=== PATIENT | female | born 1940 | race Caucasian/White ===

== ENCOUNTER → 2017-09-24 | Day surgery (SDC) | payer MEDICARE, OTHER ==
[~2017-09-24] MED LIST: ADAL40PE SQ; ALEN70TA3 PO; ASPI-630 PO; BALS750C PO; BUDE10.2 IH; CALC-157 PO; CARV25TA PO; CARV6.252 PO; CHONDR PO; CIPR500T94 PO; DOCU-109 PO; GLUCOSA PO; IV RINGERS SOLUTION,LACTATED 1,000 ML IV ONE; IV RINGERS SOLUTION,LACTATED 1,000 ML IV SCH; LIDOCAINE 2% PF Vial for OR 5 ML VIAL. ONE; LISI-334 PO; METR500T PO; METR500T8 PO; MULT1TAB52 PO; NIFE30TA2 PO; NITR100C62 PO; OMEP20TA63 PO; ONDA4TAB12 PO; ONDANSETRON PF 4 MG/2 ML VIAL. IV PRN; PANT40TA3 PO; POTA10TA31 PO; PRED20TA PO; PRED50TA PO; PROPOFOL 40 ML IV ONE; PSYL0.5215 PO; RANI150T2 PO; SIMV40TA3 PO; VANC125C2 PO
[2017-09-24 13:10] VITALS: BP 125/80
--- NOTE | 2017-09-30 17:08 | PATHOLOGY ---
[facility] Accession Number: [id number] . 01 Material submitted: . PART A: CECAL POLYP PART B: RIGHT COLON BIOPSY PART C: TRANSVERSE COLON BIOPSY PART D: LEFT COLON BIOPSY . 01 Clinical history: . Crohn's disease . 02 Diagnosis: A. Colon biopsy, cecal polyp: - Mild chronic inflammation with focal surface epithelial atrophy consistent with prominent fold. . B. Colon biopsies, right colon: - Mild chronic inflammation with focal surface epithelial inflammation and atrophy. . C. Colon biopsies, transverse colon: - Mild chronic inflammation with focal surface epithelial inflammation and atrophy. . D. Colon biopsies, left colon: - Mild chronic inflammation with focal surface epithelial inflammation and atrophy. (JPM:tashia; 09/29/2017) QMS/09/29/2017 . 02 Comment: Sections of the colon biopsies reveal multiple segments of colonic mucosa containing a few mucosa-associated lymphoid aggregates and showing mild chronic inflammation with focal surface epithelial inflammation and atrophy. There are no granulomas or crypt abscesses. There is no evidence of an active chronic destructive colitis. There is no dysplasia or evidence of malignancy. (JPM:tashia; 09/29/2017) . 02 Electronically signed: . Tommie Quiroga MD, Pathologist NPI- [id number] . 01 Gross description: . A. Received in formalin labeled "Khalida Babin, cecal polyp," is a single segment of saavedra soft tissue measuring 0.3 cm in maximum dimension. The specimen is submitted entirely in cassette A1. . B. Received in formalin labeled "TalyaWalterKhalida, right colon BX," are 3 segments of saavedra soft tissue measuring 0.9 x 0.5 x 0.2 cm in aggregate dimensions and ranging from 0.2 to 0.3 cm in maximum dimension. The specimen is submitted entirely in cassette B1. . C. Received in formalin labeled "Khalida Babin, transverse colon BX," are 3 segments of saavedra soft tissue measuring 0.6 x 0.5 x 0.2 cm in aggregate dimensions and ranging from 0.2 to 0.3 cm in maximum dimension. The specimen is submitted entirely in cassette C1. . D. Received in formalin labeled "Khalida Babin, left colon BX," are 3 segments of saavedra soft tissue measuring 0.7 x 0.5 x 0.3 cm in aggregate dimensions and ranging from 0.2 to 0.4 cm in maximum dimension. The specimen is submitted entirely in cassette D1. (TSD; 09/27/2017) TOB/TOB . 02 Pathologist provided ICD-10: K52.9, K63.89, K50.90 . 02 CPT . 565300, 357908, 002338, 159074 Performed at: 01 [facility] [address], [place] [id number] MD Herrera Mosher MD Phone: [phone] Performed at: 02 [facility] [address] [place], [place] [id number] MD Tommie Quiroga MD Phone: [phone]
== END ==
LOC: SURG 10:05
PROVIDERS: ATTEND Internal Medicine Gastroenterology
DX: K52.9 Noninfective gastroenteritis and colitis, unspecified (principal); K50.80 Crohn's disease of both small and large intestine without complications; E78.00 Pure hypercholesterolemia, unspecified; Z90.49 Acquired absence of other specified parts of digestive tract; Z90.710 Acquired absence of both cervix and uterus; Z98.890 Other specified postprocedural states; Z87.39 Personal history of other diseases of the musculoskeletal system and connective tissue; Z79.82 Long term (current) use of aspirin; Z79.899 Other long term (current) drug therapy; Z98.0 Intestinal bypass and anastomosis status
CPT/HCPCS: 45380; J2704; J7120; 88305; J2001

== ENCOUNTER → 2017-12-21 | Outpatient (CLI) | payer MEDICARE, OTHER ==
[2017-09-24 13:10] VITALS: BP 125/80
[~2017-12-21] MED LIST changes: -IV RINGERS SOLUTION,LACTATED 1,000 ML IV ONE; -IV RINGERS SOLUTION,LACTATED 1,000 ML IV SCH; -LIDOCAINE 2% PF Vial for OR 5 ML VIAL. ONE; -ONDANSETRON PF 4 MG/2 ML VIAL. IV PRN; -PROPOFOL 40 ML IV ONE
--- NOTE | 2017-12-21 15:12 | RAD ---
Bone densitometry 12/21/2017 12:04 PM Indication: Screening exam, ov failure Comparison Study: None available. Discussion: Bone Densitometry was performed with dual photon absorption of the lumbar spine and proximal femurs. Lumbar Spine: Bone average density is 1.237g/cm2 for L1-L4. T-Score is 0.5. Degenerative and scoliotic changes of the lumbar spine appear to be present. Resultant sclerosis could alter bone mineral density measurement. Right femoral neck: Bone average density is 0.706g/cm2. T-Score is -2.4. IMPRESSION: Osteopenia. Note bone mineral density is just above the osteoporotic range. Fracture risk is considered high Note: Definitions established by the World Health Organization: Normal: T-score is -1.0 or above. Osteopenia: T-score is between -1.0 and -2.5. Osteoporosis: T-score is -2.5 or below. Electronically signed by: Hi Borges MD (12/21/2017 3:08 PM) [id number]
== END | disposition home or self-care (01) ==
LOC: DXRAD 11:40
PROVIDERS: ATTEND Nurse Practitioner Family
DX: M85.88 Other specified disorders of bone density and structure, other site (principal); I10 Essential (primary) hypertension; Z87.891 Personal history of nicotine dependence; Z90.710 Acquired absence of both cervix and uterus
CPT/HCPCS: 77080

== ENCOUNTER → 2018-10-21 | Day surgery (SDC) | payer MEDICARE, OTHER ==
[~2018-10-21] MED LIST changes: +ACETAMINOPHEN 325 MG TABLET PO PRN; +ALBUTEROL SULFATE 2.5 MG/3 ML NEBU. NEB PRN; -CARV6.252 PO; +CARV6.2541 PO; +DENO60DI SQ; +IV RINGERS SOLUTION,LACTATED 1,000 ML IV SCH; +METR-34 PO; -METR500T8 PO; +ONDANSETRON PF 4 MG/2 ML VIAL. IV PRN; +PROPOFOL 20 ML IV ONE; -VANC125C2 PO; +VANC125C3 PO; +diphenhydrAMINE 50 MG/ML VIAL IV PRN
[2018-10-21 12:24] VITALS: BP 112/61
--- NOTE | 2018-10-25 16:06 | PATHOLOGY ---
[facility] Accession Number: [id number] . 01 Material submitted: . PART A: colon - RIGHT COLON. Modifiers: right PART B: colon - TRANSVERSE COLON. Modifiers: transverse PART C: colon - TRANSVERSE COLON POLYP. Modifiers: transverse PART D: colon - LEFT COLON. Modifiers: left . 01 Clinical history: . Crohn's . 02 Diagnosis: A. Colon biopsies, right colon: - Mild chronic colitis with increased eosinophils. . B. Colon biopsies, transverse colon: - Mild chronic colitis with increased eosinophils. . C. Colon biopsy, transverse colon polyp: - Hyperplastic mucosal-associated lymphoid aggregate. . D. Colon biopsies, left colon: - Mild chronic colitis with increased eosinophils. (SHEMARM:erick; 10/25/2018) MBR/10/25/2018 . 02 Comment: Sections of the right colon, transverse colon, and left colon biopsies appear similar and reveal segments of colonic mucosa showing mild chronic inflammation. There are increased eosinophils within the lamina propria and within the base of the mucosa. There is no evidence of active Crohn's disease. There is no mucosal ulceration, crypt architectural distortion, crypt abscesses, or granulomas. There is no dysplasia or evidence of malignancy. While increased eosinophils within mucosal biopsies may be seen with inflammatory bowel disease, they may also be seen in eosinophilic colitis, infectious colitis, and drug allergy. Correlate clinically. . Sections of the transverse colon polyp biopsy reveal a segment of colonic mucosa containing a hyperplastic mucosal-associated lymphoid aggregate. There are no adenomatous changes or evidence of malignancy. (JPDavid:erick; 10/25/2018) . 02 Electronically signed: . Tommie Quiroga MD, Pathologist NPI- [id number] . 01 Gross description: . A. Received in formalin labeled "Talay, Khalida, R colon BX," are 5 segments of saavedra soft tissue measuring 1.1 x 0.7 x 0.2 cm in aggregate dimensions and ranging from 0.1 to 0.5 cm in maximum dimension. The specimen is submitted entirely in cassette A1. . B. Received in formalin labeled "Khalida Babin, transverse BX," are 4 segments of saavedra soft tissue measuring 1.2 x 1.0 x 0.2 cm in aggregate dimensions and ranging from 0.1 to 0.4 cm in maximum dimension. The specimen is submitted entirely in cassette B1. . C. Received in formalin labeled "Khalida Babin, transverse polyp," is a single segment of saavedra soft tissue measuring 0.3 cm in maximum dimension. The specimen is entirely submitted in cassette C1. . D. Received in formalin labeled "Khalida Babin, left colon BX," are 5 segments of saavedra soft tissue measuring 1.0 x 0.9 x 0.2 cm in aggregate dimensions and ranging from 0.3 to 0.6 cm in maximum dimension. The specimen is submitted entirely in cassette D1. (TSD; 10/24/2018) TOB/TOB . 02 Pathologist provided ICD-10: K52.9 . 02 CPT . 451360, 351691, 671897, 585980 Specimen Comment: A courtesy copy of this report has been sent to Specimen Comment: [phone], . Specimen Comment: Report sent to / DR YOUNGER Performed at: 01 [facility] [address], [place], [place] [id number] MD Herrera Mosher MD Phone: [phone] Performed at: 02 [facility] [address] [place], [place] [id number] MD Tommie Quiroga MD Phone: [phone]
== END ==
LOC: SURG 10:35
PROVIDERS: ATTEND Internal Medicine Gastroenterology
DX: K63.5 Polyp of colon (principal); K52.89 Other specified noninfective gastroenteritis and colitis; K50.10 Crohn's disease of large intestine without complications; K21.9 Gastro-esophageal reflux disease without esophagitis; I10 Essential (primary) hypertension; Z98.0 Intestinal bypass and anastomosis status; Z88.8 Allergy status to other drugs, medicaments and biological substances
CPT/HCPCS: 45380; 88305

== ENCOUNTER 2018-12-17 21:49 | Inpatient (IN) | payer MEDICARE, OTHER ==
[~2018-12-17] VITALS: Ht 152.4 cm; Wt 66.0 kg
[~2018-12-17 21:49] MED LIST changes: -ACETAMINOPHEN 325 MG TABLET PO PRN; -ALBUTEROL SULFATE 2.5 MG/3 ML NEBU. NEB PRN; -IV RINGERS SOLUTION,LACTATED 1,000 ML IV SCH; -ONDANSETRON PF 4 MG/2 ML VIAL. IV PRN; -PROPOFOL 20 ML IV ONE; +SIMV40TA18 PO; -SIMV40TA3 PO; -diphenhydrAMINE 50 MG/ML VIAL IV PRN
[2018-12-17] MEDS ORDERED: IV NORMAL SALINE 1,000ML 1,000 ML IV ONE (22:15)
--- NOTE | 2018-12-17 22:26 | RAD ---
CT scan of the head without contrast 12/17/2018 Clinical History: Dizziness, fatigue. Technique: Unenhanced, contiguous, 5 mm axial sections were obtained through the head. One or more of the following individualized dose reduction techniques were utilized for this study: 1. Automated exposure control. 2. Adjustment of the mA and/or kV according to patient size. 3. Use of iterative reconstruction technique. Findings: No previous studies are available for comparison. There is generalized parenchymal atrophy. Areas of decreased attenuation are seen within the periventricular and subcortical white matter of both cerebral hemispheres consistent with areas of small vessel ischemic disease. No acute parenchymal abnormality is seen. No extra-axial fluid collection is noted. No skull fracture is seen. Impression: No acute intracranial abnormality is seen. Electronically signed by: Tor Vargas MD (12/17/2018 10:23 PM) [facility]
--- NOTE | 2018-12-17 22:50 | PHYS DOC ---
Past History Past Medical History: Arthritis, Bronchitis, Constipation, High Cholesterol, Hypertension, UTI, Vascular Disease, Other Additional Past Medical Histor: CROHNS Past Surgical History: Cholecystectomy, Colectomy, Hysterectomy, Other Alcohol Use: None Drug Use: None Adult General Chief Complaint Chief Complaint: DIZZY/LIGHT HEADED HPI HPI 78-year-old female presents via EMS with dizziness and fever. The patient states that she has a chronic cough, but it got worse a couple days ago. She has been feeling more tired and worse overall the last 2 days. Today she had some dizziness especially with standing up. She was unaware that she has fever. The patient does not have any specific complaints other than dizziness and general fatigue. She has difficulty with urinary incontinence. Review of Systems Review of Systems Constitutional: Fever [] Eyes: Denies change in visual acuity, redness, or eye pain [] HENT: Denies nasal congestion or sore throat [] Respiratory: Cough with shortness of breath [] Cardiovascular: No additional information not addressed in HPI [] GI: Denies abdominal pain, nausea, vomiting, bloody stools or diarrhea [] : Urinary incontinence[] Musculoskeletal: Denies back pain or joint pain [] Integument: Denies rash or skin lesions [] Neurologic: Denies headache, focal weakness or sensory changes [] Endocrine: Denies polyuria or polydipsia [] All other systems were reviewed and found to be within normal limits, except as documented in this note. Current Medications Current Medications Current Medications Medications (Trade) Dose Ordered Sig/Rachel Start Time Stop Time Status Last Admin Dose Admin Levofloxacin/ Dextrose 150 ml @ 100 mls/hr 1X ONCE 12/17/18 22:45 12/18/18 00:14 UNV Sodium Chloride 1,000 ml @ 1,000 mls/hr 1X ONCE 12/17/18 22:15 12/17/18 23:14 12/17/18 22:15 1,000 MLS/HR Allergies Allergies Allergies Coded Allergies Type Severity Reaction Last Updated Verified Penicillins Allergy Intermediate 01/20/16 Yes iodine Allergy Intermediate 01/20/16 Yes mushroom Allergy Mild 01/20/16 Yes Sulfa (Sulfonamide Antibiotics) Allergy Unknown 10/12/18 Yes Physical Exam Physical Exam Constitutional: Well developed, well nourished, no acute distress, non-toxic appearance. [] HENT: Normocephalic, atraumatic, bilateral external ears normal, oropharynx moist, no oral exudates, nose normal. [] Eyes: PERRLA, EOMI, conjunctiva normal, no discharge. [] Neck: Normal range of motion, no tenderness, supple, no stridor. [] Cardiovascular:Heart rate regular rhythm, no murmur [] Lungs & Thorax: Bilateral breath sounds diminished[] Abdomen: Bowel sounds normal, soft, no tenderness, no masses, no pulsatile masses. [] Skin: Warm, dry, no erythema, no rash. [] Back: No tenderness, no CVA tenderness. [] Extremities: No tenderness, no cyanosis, no clubbing, ROM intact, no edema. [] Neurologic: Alert and oriented X 3, normal motor function, normal sensory function, no focal deficits noted. [] Psychologic: Affect normal, judgement normal, mood normal. [] Current Patient Data Vital Signs Vital Signs Date Time Temp Pulse Resp B/P (MAP) Pulse Ox O2 Delivery O2 Flow Rate FiO2 12/17/18 22:00 100.1 63 18 94 Room Air EKG EKG [] Radiology/Procedures Radiology/Procedures [] Impressions: CT scan of the head without contrast 12/17/2018 Clinical History: Dizziness, fatigue. Technique: Unenhanced, contiguous, 5 mm axial sections were obtained through the head. One or more of the following individualized dose reduction techniques were utilized for this study: 1. Automated exposure control. 2. Adjustment of the mA and/or kV according to patient size. 3. Use of iterative reconstruction technique. Findings: No previous studies are available for comparison. There is generalized parenchymal atrophy. Areas of decreased attenuation are seen within the periventricular and subcortical white matter of both cerebral hemispheres consistent with areas of small vessel ischemic disease. No acute parenchymal abnormality is seen. No extra-axial fluid collection is noted. No skull fracture is seen. Impression: No acute intracranial abnormality is seen. Electronically signed by: Tor Vargas MD (12/17/2018 10:23 PM) [facility] DICTATED AND SIGNED BY: TOR VARGAS MD DATE: 12/17/18 2223 CC: CECI VARNER MD; JUAN SULLIVAN DO ~ Course & Med Decision Making Course & Med Decision Making Pertinent Labs and Imaging studies reviewed. (See chart for details) On arrival patient has a fever. She also has a low blood pressure. This is likely causing her does not. Though we do not currently have a source, the patient meets sepsis criteria. I ordered 30 mL/kg of fluids, blood cultures, lactic acid, and levofloxacin. The patient is allergic to penicillins. Her reaction includes shortness of breath and difficulty breathing. Labs are pending, chest x-ray is pending. The patient's labs show a low potassium and low sodium. See labs for more details. Her lactic acid is 1.0. The patient's urinalysis is significant for UTI. She has been given levofloxacin. Her white count is within normal limits. I will admit the patient to the hospital in the ICU. I discussed this patient with Dr. Miller and he has accepted her for admission. The patient was in the ED, she continued to have low blood pressures. She took her carvedilol at 7 PM. Her map was anywhere from 61-70. She tended to hang out in the low to mid 60s. I considered a presser, but she is easily arousable, alert, aware and tolerating this blood pressure at this time. I am concerned the risks of the pressor might be greater than the benefit given she appears stable. Her temperature is normal at this time. I have added meropenem as a s econd antibiotic in the event she could have a UTI resistant to levofloxacin. 49 minutes of critical care time was spent on this patient exclusive of other billable procedures. [] Dragon Disclaimer Dragon Disclaimer This electronic medical record was generated, in whole or in part, using a voice recognition dictation system. Date and Time of Assessment Date: Dec 17, 2018 Time: 22:48 Vital Signs Vital Signs Vital Signs Date Time Temp Pulse Resp B/P (MAP) Pulse Ox O2 Delivery O2 Flow Rate FiO2 12/17/18 22:00 100.1 63 18 94 Room Air Temperature Source: Oral Respirations Respiratory Effort: Normal Respiratory Pattern: Normal Cardiovascular Pulse Rhythm: Regular HEART: Nml rate, reg. rhythm Lung Sounds Breath Sounds: Diminished Capillary Refill Capillary Refill: Rt Foot < 3 seconds Peripheral Pulse Pulse Location: Monitor Pulse Strength: Normal (2+) Pulse Assessment Method: Monitor Integumentary Skin: Warm Skin Moisture: Dry Skin Turgor: Normal Skin Color: no erythema Fingernail Color: WNL Fluid Challenge: Is the fluid challenge complet: No IBW Target Volume Used: No BMI > 30: No Blood Culture TIme: 22:20 Time Antibiotics Given: 22:54 Departure Departure: Impression: Primary Impression: Sepsis Additional Impression: UTI (urinary tract infection) Disposition: ADMITTED INPATIENT Admitting Physician: Torres Miller Condition: GUARDED Referrals: CECI VARNER MD (PCP) Problem Qualifiers Primary Impression: Sepsis Sepsis type: sepsis due to unspecified organism Sepsis acute organ dysfunction status: without acute organ dysfunction Qualified Codes: A41.9 - Sepsis, unspecified organism Additional Impression: UTI (urinary tract infection) Urinary tract infection type: acute pyelonephritis Qualified Codes: N10 - Acute pyelonephritis JUAN SULLIVAN DO Dec 17, 2018 22:50
[2018-12-17 22:52] LABS: BASO % 1 % (0-3); EOS % 1 % (0-3); HEMATOCRIT 34.3 % (36.0-47.0); HEMOGLOBIN 11.9 g/dL (12.0-15.5); LYMPH # 0.6 x10^3/uL (1.0-4.8); LYMPH % 10 % (24-48); MEAN CORPUSCULAR HEMOGLOBIN 32 pg (25-35); MEAN CORPUSCULAR HGB CONC 35 g/dL (31-37); MEAN CORPUSCULAR VOLUME 92 fL (79-100); MONO # 0.8 x10^3/uL (0.0-1.1); MONO % 14 % (0-9); NEUT # 4.2 x10^3uL (1.8-7.7); NEUT % 75 % (31-73); PLATELET COUNT 155 x10^3/uL (140-400); RED BLOOD COUNT 3.73 x10^6/uL (3.50-5.40); WHITE BLOOD COUNT 5.6 x10^3/uL (4.0-11.0)
[2018-12-17] MEDS ORDERED: ACETAMINOPHEN 500 MG TABLET PO ONE (23:00)
[2018-12-17 23:01] LABS: ALBUMIN 3.4 g/dL (3.4-5.0); ALBUMIN/GLOBULIN RATIO 1.1 (1.0-1.7); CALCIUM 8.1 mg/dL (8.5-10.1); CREATININE 1.3 mg/dL (0.6-1.0); GFR 39.5; POTASSIUM 3.2 mmol/L (3.5-5.1); TOTAL BILIRUBIN 0.7 mg/dL (0.2-1.0); TOTAL PROTEIN 6.6 g/dL (6.4-8.2)
[2018-12-17] MEDS: NORMAL SALINE IV SCH (23:26)
[2018-12-17 23:39] LABS: BILIRUBIN,URINE NEG (NEG); CLARITY,URINE CLOUDY; COLOR,URINE YELLOW; GLUCOSE,URINE NEG (NEG); NITRITE,URINE POS (NEG); UROBILINOGEN,URINE 0.2 mg/dL (0.2 mg/dL)
[2018-12-17 23:40] LABS: BACTERIA,URINE MANY /HPF (0-FEW); HYALINE CASTS, URINE FEW /HPF; SQUAMOUS EPITHELIAL CELL,UR FEW /LPF; WBC,URINE >40 /HPF (0-4)
[2018-12-18] VITALS (40 sets, daily range): BP systolic 77–164; BP diastolic 42–76
[2018-12-18] MEDS: NORMAL SALINE IV SCH (00:33)
[2018-12-18] MEDS ORDERED: MEROPENEM 1 GM in IV NORMAL SALINE 100ML 100 ML IV STA (00:50)
[2018-12-18] MEDS ORDERED: IV NORMAL SALINE 100ML 100 ML ONE (00:53)
[2018-12-18] MEDS ORDERED: MEROPENEM 1 GM VIAL IV ONE (00:53)
[2018-12-18] MEDS ORDERED: ONDANSETRON PF 4 MG/2 ML VIAL. IV PRN (01:00)
[2018-12-18] MEDS: IV NORMAL SALINE 1,000ML 1,000 ML IV SCH ×4 (01:45→19:48)
--- NOTE | 2018-12-18 02:10 | NUR ---
The patient, RONNI CHUN, 78 y/o, F admitted by ARVIN QUINONEZ MD, was given written information regarding hospital policies, unit procedures and contact persons. Valuables were checked and logged. Call light at bedside. Will continue to monitor.
--- NOTE | 2018-12-18 02:29 | NUR ---
Notified MD of low blood pressure at this time. No medication orders received. Pt is currently in Trendelenburg. Pt is A&O x 4.
[2018-12-18] MEDS ORDERED: NOREPINEPHRINE BITARTRATE 4 MG/4 ML VIAL. IV ONE (02:40)
[2018-12-18] MEDS ORDERED: NOREPINEPHRINE BITARTRATE 8 MG in IV NORMAL SALINE 250ML 250 ML IV PRN (02:45)
[2018-12-18] MEDS ORDERED: Influenza vaccine per PROTOCOL. MC PRN (05:30)
[2018-12-18 06:43] LABS: BASO % 0 % (0-3); EOS % 0 % (0-3); HEMATOCRIT 30.3 % (36.0-47.0); HEMOGLOBIN 10.6 g/dL (12.0-15.5); LYMPH # 0.6 x10^3/uL (1.0-4.8); LYMPH % 13 % (24-48); MEAN CORPUSCULAR HEMOGLOBIN 32 pg (25-35); MEAN CORPUSCULAR HGB CONC 35 g/dL (31-37); MEAN CORPUSCULAR VOLUME 91 fL (79-100); MONO # 0.8 x10^3/uL (0.0-1.1); MONO % 16 % (0-9); NEUT # 3.4 x10^3uL (1.8-7.7); NEUT % 71 % (31-73); PLATELET COUNT 149 x10^3/uL (140-400); RED BLOOD COUNT 3.31 x10^6/uL (3.50-5.40); RED CELL DISTRIBUTION WIDTH 13.7 % (11.5-14.5); WHITE BLOOD COUNT 4.9 x10^3/uL (4.0-11.0)
[2018-12-18 06:55] LABS: ALBUMIN 2.6 g/dL (3.4-5.0); ALBUMIN/GLOBULIN RATIO 0.9 (1.0-1.7); CALCIUM 6.8 mg/dL (8.5-10.1); GFR 53.5; POTASSIUM 3.1 mmol/L (3.5-5.1); TOTAL BILIRUBIN 0.6 mg/dL (0.2-1.0); TOTAL PROTEIN 5.4 g/dL (6.4-8.2)
[2018-12-18] MEDS ORDERED: POTASSIUM CHLORIDE 20 MEQ TABLET.ER. PO ONE (07:15)
--- NOTE | 2018-12-18 07:29 | RAD ---
Indication:Fever, cough, fatigue TECHNIQUE:Portable AP chest X-ray COMPARISON: None FINDINGS: Heart is normal in size. Mild prominent interstitial opacities are seen. No focal consolidation. No pneumothorax or pleural effusion. Visualized bony thorax within normal limits. IMPRESSION: Suggestion of mild atypical/viral infection. Electronically signed by: Sunday Duncan DO (12/18/2018 7:26 AM) [facility]
[2018-12-18] MEDS ORDERED: FLU VAX QS 2019-20 (36MOS+)/PF 0.5 ML SYRINGE. VAX IM ONE (09:00)
[2018-12-18] MEDS ORDERED: ELECTROLYTE (NON-ICU) PROTOCOL MC PRN (10:30)
[2018-12-18] MEDS ORDERED: IPRATRPIUM/ALBUTEROL 0.5/2.5MG 3 ML NEBU. NEB SCH (14:00)
--- NOTE | 2018-12-18 14:27 | RAD ---
PQRS Compliance statement: One or more of the following individualized dose reduction techniques were utilized for this examination: 1. Automated exposure control. 2. Adjustment of the mA and/or kV according to patient size. 3. Use of iterative reconstruction technique. Indication:Chronic cough. TECHNIQUE: CT chest without IV contrast with multiplanar reformats. COMPARISON:None FINDINGS: Heart is normal in size. No pericardial effusion. No enlarged axillary or mediastinal lymph nodes. Evaluation of hilar lymphadenopathy is limited due to lack of IV contrast. Mild subpleural patchy opacity in the posterior segment of the right upper lobe. Trace bilateral pleural effusions. Consolidation is seen in the subpleural bilateral dependent aspect of the lung bases. Visualized noncontrast sections through the liver, spleen, pancreas, adrenals and kidneys within normal limits. No suspicious bony lesion. IMPRESSION: 1. Trace bilateral pleural effusions with associated adjacent mild consolidation which may be from passive atelectasis. 2. Mild patchy opacity in the subpleural right upper lobe, nonspecific. Follow-up CT chest in 3-4 months recommended. No evidence of interstitial lung disease. Electronically signed by: Sunday Duncan DO (12/18/2018 2:24 PM) [facility]
[2018-12-18] MEDS: guaiFENesin DM 200MG/20MG 10 ML SYRUP PO PRN ×2 (14:44→22:05)
[2018-12-18] MEDS: BALSALAZIDE DISODIUM PO SCH ×2 (14:56→20:51)
[2018-12-18] MEDS: ACETAMINOPHEN 325 MG TABLET PO PRN ×2 (16:03→19:56)
[2018-12-18] MEDS: IPRATRPIUM/ALBUTEROL 0.5/2.5MG 3 ML NEBU. NEB SCH ×2 (16:38→20:28)
[2018-12-18 16:45] LABS: CALCIUM 7.1 mg/dL (8.5-10.1); CREATININE 0.9 mg/dL (0.6-1.0); GFR 60.4; POTASSIUM 3.2 mmol/L (3.5-5.1)
[2018-12-18] MEDS: CALCIUM CARB/VIT D3 500/200 TABLET PO SCH (16:59)
[2018-12-18] MEDS: VANCOMYCIN 125 MG/2.5 ML ORAL SOLUTION. PO SCH ×2 (16:59→20:52)
[2018-12-18] MEDS: POTASSIUM CHLORIDE 10MEQ 100 ML IV SCH ×4 (17:00→19:56)
[2018-12-18] MEDS ORDERED: ELECTROLYTE (ICU) PROTOCOL. MC PRN (18:30)
[2018-12-18] MEDS ORDERED: guaiFENesin DM 200MG/20MG 10 ML SYRUP PO PRN (18:45)
--- NOTE | 2018-12-18 19:18 | HP ---
ADMIT DATE: 12/18/2018 HISTORY OF PRESENT ILLNESS: This is a 78-year-old female has been having chronic cough for the last several days, has been feeling feverish and lightheaded. The patient notes generalized fatigue. She has urinary incontinence. She is on immunosuppressive therapy for her Crohn's disease. As a result of this, the patient was admitted to the hospital for further evaluation and treatment of what appeared to be SIRS as the patient had an elevated temperature of 101.5. She was also noted to have extremely low blood pressure, was placed on IV Levophed drip. She was placed in the ICU. 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 Also, she has had a history of C. diff. IMMUNIZATIONS: For Influenza, pneumococcal all up-to-date. ALLERGIES: PENICILLIN, SULFUR, IODINE, AND MUSHROOMS. MEDICATIONS: Include that of Zocor 40, Coreg 25 b.i.d., lisinopril 20, aspirin 81, calcium carbonate, docusate sodium, Metamucil, ranitidine 150 mg b.i.d., balsalazide disodium 750 mg t.i.d., multivitamin, Prolia 60 mg q. 6, Humira 40 mg every 15 days. FAMILY HISTORY: Mother with hypertension and Crohn's disease as well as cardiovascular disease as well as some type of autoimmune disease, sister with heart disease, and a brother with autoimmune disease. SOCIAL HISTORY: The patient denies smoking, alcohol or drug use. Full code. REVIEW OF SYSTEMS: The patient notes she has not been feeling well for the last 3-4 days prior to admission, feeling rundown, tired, lethargy, is just lying around in bed, not doing much of anything. She does have this chronic cough. She does bring up some mucus from time to time that she says is stringy. Otherwise, she denies chest pain, abdominal pain. Denies any melena, hematochezia, or hematemesis. Does not feel any dysuria. Neurologically stable. PHYSICAL EXAMINATION: GENERAL: This is a pleasant white female in no obvious distress. VITAL SIGNS: Initial blood pressure went down as low as 79/47, respiratory rate 16, pulse 60, temperature anywhere from 98-101.5 (NC). HEENT: Otherwise, head was atraumatic, normocephalic. Eyes: PERRLA without jaundice. Mouth and throat were normal. NECK: Supple, without JVD, carotid bruits, or thyromegaly. LUNGS: Diminished, primarily rhonchi noted in the bases. CARDIOVASCULAR: Regular sinus rhythm, S1, S2, without murmur, rub, thrill, or extra heart sound. ABDOMEN: Soft, nontender, no rebound or guarding. Positive bowel sounds, no hepatosplenomegaly noted. EXTREMITIES: No clubbing, cyanosis, nor edema noted. NEUROLOGIC: The patient is alert and oriented. Speech is fluent, spontaneous, and appropriate. Cranial nerves 2-12 grossly intact. Moving all extremities well. LABORATORY DATA: Sodium 128, potassium of 3.1, albumin of 2.6. Lactic acid is good at 1, creatinine went from 1.3 down to 0.9 with some hydration. D-dimer was elevated. The patient has C. difficile colitis as well, recurrent. She has been placed on vancomycin orally. Otherwise, the patient is resting fairly comfortably. IMPRESSION: Therefore, sepsis, hypotension, and started on Levophed intermittently to keep her blood pressure up. She has Clostridium difficile colitis on oral vancomycin. The patient also appears to have a urinary tract infection with greater than 40 white blood cells per high-powered field. Urine culture is pending. She is on Levaquin as well as IV vancomycin until we get the report back on that. The patient also is getting fluids as well. She has severe protein malnutrition. She has pseudohypocalcemia, hyperglycemia, acute renal stasis, dehydration, anemia of chronic disease, and history of Crohn's disease. PLAN: The patient will be continued to be monitored carefully in the ICU. She has a multiplicity of medical problems as noted above and we will continue to monitor her accordingly on those multiple medical issues. CT scan of the chest performed for the chronic cough did show pleural effusion. Also, hypokalemia as well as replacement of potassium per protocol. ARVIN QUINONEZ MD DR: MAGNOLIA/rand JOB#: [id number] / [id number]
[2018-12-18] MEDS: ENOXAPARIN ** NOTE DOSE ** SYRINGE SQ SCH (20:52)
[2018-12-18] MEDS: LACTOBACILLUS RHAMNOSUS GG 1 CAPSULE. PO SCH (20:52)
[2018-12-19] VITALS (14 sets, daily range): BP systolic 81–172; BP diastolic 52–93
[2018-12-19] MEDS: IPRATRPIUM/ALBUTEROL 0.5/2.5MG 3 ML NEBU. NEB SCH ×4 (05:10→20:04)
[2018-12-19 06:22] LABS: BASO % 0 % (0-3); EOS % 1 % (0-3); HEMATOCRIT 32.5 % (36.0-47.0); LYMPH % 26 % (24-48); MEAN CORPUSCULAR HEMOGLOBIN 31 pg (25-35); MEAN CORPUSCULAR HGB CONC 34 g/dL (31-37); MEAN CORPUSCULAR VOLUME 92 fL (79-100); MONO # 0.5 x10^3/uL (0.0-1.1); MONO % 13 % (0-9); NEUT # 2.2 x10^3uL (1.8-7.7); NEUT % 59 % (31-73); PLATELET COUNT 121 x10^3/uL (140-400); RED BLOOD COUNT 3.52 x10^6/uL (3.50-5.40); RED CELL DISTRIBUTION WIDTH 13.8 % (11.5-14.5); WHITE BLOOD COUNT 3.7 x10^3/uL (4.0-11.0)
[2018-12-19 06:25] LABS: CALCIUM 7.4 mg/dL (8.5-10.1); CREATININE 0.8 mg/dL (0.6-1.0); GFR 69.2; POTASSIUM 3.4 mmol/L (3.5-5.1)
[2018-12-19] MEDS: guaiFENesin DM 200MG/20MG 10 ML SYRUP PO PRN ×2 (06:37→21:17)
[2018-12-19] MEDS ORDERED: POTASSIUM CHLORIDE 20 MEQ TABLET.ER. PO ONE (07:30)
[2018-12-19] MEDS: CARVEDILOL 6.25 MG TABLET PO SCH ×2 (08:00→17:06)
[2018-12-19] MEDS: CALCIUM CARB/VIT D3 500/200 TABLET PO SCH ×2 (08:15→17:05)
[2018-12-19] MEDS: LACTOBACILLUS RHAMNOSUS GG 1 CAPSULE. PO SCH ×2 (08:16→21:16)
[2018-12-19] MEDS: BALSALAZIDE DISODIUM PO SCH ×3 (08:17→21:16)
[2018-12-19] MEDS: VANCOMYCIN 125 MG/2.5 ML ORAL SOLUTION. PO SCH ×4 (08:17→21:17)
[2018-12-19] MEDS ORDERED: ONDANSETRON PF 4 MG/2 ML VIAL. ONE (08:21)
[2018-12-19] MEDS ORDERED: ONDANSETRON PF 4 MG/2 ML VIAL. IVP PRN (08:30)
--- NOTE | 2018-12-19 08:35 | NUR ---
IP: patient tests + for c diff, requires contact + precautions.
[2018-12-19] MEDS ORDERED: FUROSEMIDE 20 MG TABLET PO SCH (09:00)
[2018-12-19] MEDS ORDERED: MULTIVITAMIN with MINERAL TABLET. PO SCH (09:00)
[2018-12-19] MEDS ORDERED: FUROSEMIDE 20 MG/2 ML VIAL IVP SCH (09:00)
[2018-12-19] MEDS: ENOXAPARIN ** NOTE DOSE ** SYRINGE SQ SCH (09:00)
[2018-12-19] MEDS ORDERED: ASPIRIN 81 MG TAB.CHEW PO SCH (09:00)
[2018-12-19] MEDS ORDERED: FLU VAX QS 2019-20 (36MOS+)/PF 0.5 ML SYRINGE. VAX IM ONE (09:00)
[2018-12-19] MEDS ORDERED: FAMOTIDINE 20 MG TABLET PO SCH (09:00)
--- NOTE | 2018-12-19 12:39 | RAD ---
Ventilation/perfusion scintigraphy 12/19/2018 INDICATION: D-dimer elevated. Fatigue for 3 days with cough for 5 months. COMPARISON: CT chest 12/18/2018, chest radiograph 12/17/2018. TECHNIQUE: Scintigraphic imaging of ventilation and perfusion physiology was performed after the administration of 5.5 mCi technetium 99m. FINDINGS: There is a subsegmental matched defect involving the posterior basal segment right lower lobe. No large matched or mismatched defects are identified. There is no significant trapping of radiotracer on equilibrium. IMPRESSION: Low probability for pulmonary embolism utilizing modified PIOPED criteria. Electronically signed by: Layla Rivera MD (12/19/2018 12:36 PM) [facility]
[2018-12-19] MEDS ORDERED: FLUTICASONE 50MCG/NASAL SPRAY 16GM BOTTLE. NS SCH (17:00)
[2018-12-19] MEDS ORDERED: ACETAMINOPHEN 325 MG TABLET PO PRN (18:45)
[2018-12-19] MEDS ORDERED: ENOXAPARIN 40 MG/0.4 ML SYRINGE. SQ SCH (21:00)
--- NOTE | 2018-12-19 23:59 | NUR ---
Pt called out for nurse c/o nausea, palpitations, diaphoresis. JORDON Romero at bedside. Pt with HR sustaining in the 180's for approx. 10 seconds. BP low 81/52, then elevated upon recheck 150/102, 164/98. Pt O2 sats remain mid-90's on room air. Pt instructed to hold breath and bear down. HR now irregular, 110-140's. P wave noted. Dr. Miller informed of pt status, obtaining stat EKG and labs. Will initiate ICU electrolyte protocol.
[2018-12-20] VITALS (7 sets, daily range): BP systolic 80–164; BP diastolic 62–98
[2018-12-20 00:23] LABS: BASO % 1 % (0-3); EOS % 1 % (0-3); HEMOGLOBIN 13.1 g/dL (12.0-15.5); LYMPH # 1.1 x10^3/uL (1.0-4.8); LYMPH % 22 % (24-48); MEAN CORPUSCULAR HEMOGLOBIN 31 pg (25-35); MEAN CORPUSCULAR HGB CONC 35 g/dL (31-37); MEAN CORPUSCULAR VOLUME 91 fL (79-100); MONO # 0.5 x10^3/uL (0.0-1.1); MONO % 9 % (0-9); NEUT # 3.5 x10^3uL (1.8-7.7); NEUT % 68 % (31-73); PLATELET COUNT 159 x10^3/uL (140-400); RED BLOOD COUNT 4.18 x10^6/uL (3.50-5.40); WHITE BLOOD COUNT 5.2 x10^3/uL (4.0-11.0)
[2018-12-20 00:34] LABS: ALBUMIN 3.1 g/dL (3.4-5.0); CALCIUM 8.4 mg/dL (8.5-10.1); CREATININE 1.2 mg/dL (0.6-1.0); GFR 43.3; MAGNESIUM 1.3 mg/dL (1.8-2.4); POTASSIUM 3.4 mmol/L (3.5-5.1); TOTAL BILIRUBIN 0.4 mg/dL (0.2-1.0); TOTAL PROTEIN 6.2 g/dL (6.4-8.2)
[2018-12-20] MEDS ORDERED: MAGNESIUM SULFATE 2GM 50 ML IV ONE (01:00)
[2018-12-20] MEDS ORDERED: DIGOXIN IV 500 MCG/2 ML AMPUL. IV ONE (01:30)
--- NOTE | 2018-12-20 03:30 | NUR ---
0100: Dr. Miller updated on patient status. Reported EKG results, elevated troponin of 0.939. Pt's heart rhythm remains irregular, no P wave noted. Rate 120-140's. Low BP's. Pt feeling mildly nauseated, but not longer having palpitations. Per Dr. Miller, serial troponins ordered. Give digoxin 0.5mg IVP now. 0330: After digoxin admin, rate has improved. HR now 110's. BP stable. Pt denies any c/o. Resting in bed.
--- NOTE | 2018-12-20 04:03 | NUR ---
Dr. Miller notified of second elevated troponin 3.974. Pt denies pain, but reports intermittent cold sweating. Per MD, [facility] cardiology consulted and pt to transfer to [facility]. Dr. Miller will remain primary physician. Nursing sup working on bed placement. Pt and family notified of transfer.
--- NOTE | 2018-12-20 04:49 | NUR ---
Spoke with Dr. Rodriguez regarding pt condition. Ordered to repeat EKG upon arrival to [facility]. Pt and family notified of transfer, agreeable. Report called to Elida rapp RN.
[2018-12-20] MEDS ORDERED: ASPIRIN 81 MG TAB.CHEW PO ONE (05:15)
--- NOTE | 2018-12-20 05:23 | NUR ---
Discharge Note: [facility] Discharge instructions and discharge home medications reviewed with Other facility and a copy given. All questions have been answered and understanding verbalized. The following instructions and handouts were given: DC PACKET, MED REC. Discontinued lines and drains: Peripheral IV remains in place, #22 Lt. Hand. Patient discharged to [facility] Rm [id number] with Ambulance Personnel via Stretcher. All belongings sent with patient.
--- NOTE | 2018-12-20 05:54 | PN ---
DATE: 12/19/2018 SUBJECTIVE: The patient is sitting comfortably in her chair, in no apparent distress. She continued to have cough that is mostly dry with scanty whitish sputum. She has had diarrhea, although the stool seemed to be more semi-formed. Denied any dizziness, lightheadedness. PHYSICAL EXAMINATION: GENERAL: When I examined her this morning, she looked pale, not jaundiced, cyanosed. No thyromegaly. No jugular venous distension. No limb edema. VITAL SIGNS: Her heart rate was 90, blood pressure 121/67, temperature was 97.4, respiratory rate was 18 and oxygen saturation was 97% on 2 liters of oxygen. HEAD, EYES, EARS, NOSE AND THROAT: Showed normocephalic, atraumatic. NECK: Supple. HEART: Showed normal first and second heart sounds. No gallop or murmur. CHEST: Clear to auscultation. No crepitation or rhonchi. ABDOMEN: Distended, soft, nontender. NEUROLOGIC: She is awake, alert, responding appropriately. All cranial nerves intact. She moves all extremities without difficulty. Her intake over the last 24 hours was 2150, output was 1325. LABORATORY DATA: Her lab work this morning showed a white cell count 3700, hemoglobin 11, hematocrit 33, MCV 92, and platelet count of 121,000 with normal manual differential. His serum sodium was 135, potassium 3.4, chloride 100, bicarbonate 25, anion gap of 10, BUN 7, creatinine 0.8, estimated GFR was 69 mL per minute. Her glucose was 88, calcium was 7.4. Her D-dimer was high at 1.33. Urinalysis showed that the patient has cloudy urine with moderate amount of leukocyte esterase, positive for nitrite. There was more than 40 wbc's and too many bacteria. ASSESSMENT: 1. Sepsis with hypotension for which she was started on Levophed. 2. Urinary tract infection. 3. Clostridium difficile colitis, on oral vancomycin. 4. Acute kidney injury, improved. Her BUN and creatinine came down from 1.3 to 0.8, hyponatremia with a sodium from 128 has risen to 135. PLAN: My plan is to continue with IV levofloxacin as well as oral vancomycin. Continue DVT prophylaxis. We will monitor her labs closely and decide further management accordingly. BLESSING GUIDO MD DR: Meenu JOB#: [id number] / [id number]
--- NOTE | 2018-12-20 07:16 | EKG ---
[address] [address] Test Date: 2018-12-19 Test Time: 23:58:27 Pat Name: [facility] Department: Room: ICU03 1 Gender: F Fingerer: LORENZA : 1940 Requested By: BLESSING GUIDO Order Number: [id number] Reading MD: Ambrose Medeiros MD Measurements Intervals [place] Rate: 128 P: [place]: QRS: -7 QRSD: 70 T: 34 QT: 324 QTc: 476 Interpretive Statements UNCLEAR RHYTHM - SVT NON-SPECIFIC ST/T CHANGES Electronically Signed On 12-27-2018 10:13:16 CDT by Ambrose Medeiros MD
--- NOTE | 2018-12-20 07:50 | RAD ---
CHEST AP ONLY 12/20/2018 12:35 AM INDICATION: Shortness of air, cough COMPARISON: 12/17/2018 TECHNIQUE: Portable frontal view of the chest is provided. FINDINGS: The cardiomediastinal silhouette is similar in appearance. Trace bilateral pleural effusions with adjacent compressive atelectasis versus infiltrate. Findings are marginally progressed since the prior examination. No significant pulmonary vascular congestion or pneumothorax. IMPRESSION: Increase in trace bilateral pleural effusions with adjacent compressive atelectasis versus infiltrates. Electronically signed by: Layla Rivera MD (12/20/2018 7:47 AM) [facility]
[2018-12-20] MEDS ORDERED: MEROPENEM 1 GM in IV NORMAL SALINE 100ML 100 ML IV SCH (08:00)
[2018-12-20] MEDS ORDERED: CETIRIZINE HCL 10 MG TABLET PO SCH (09:00)
== END 2018-12-20 05:27 | disposition short-term general hospital (02) | DRG 871 ==
LOC: ER 21:49 → ICU 12-18 00:01
PROVIDERS: ADMIT Family Medicine; ATTEND Internal Medicine
DX: A41.9 Sepsis, unspecified organism (principal); E43 Unspecified severe protein-calorie malnutrition; N39.0 Urinary tract infection, site not specified; K50.90 Crohn's disease, unspecified, without complications; A04.72 Enterocolitis due to Clostridium difficile, not specified as recurrent; N17.9 Acute kidney failure, unspecified; E87.1 Hypo-osmolality and hyponatremia; I95.9 Hypotension, unspecified; E86.0 Dehydration; D63.8 Anemia in other chronic diseases classified elsewhere; R73.9 Hyperglycemia, unspecified; E78.00 Pure hypercholesterolemia, unspecified; Z79.899 Other long term (current) drug therapy; Z90.710 Acquired absence of both cervix and uterus; Z88.0 Allergy status to penicillin; Z88.2 Allergy status to sulfonamides; Z91.041 Radiographic dye allergy status; Z82.49 Family history of ischemic heart disease and other diseases of the circulatory system; I10 Essential (primary) hypertension; J42 Unspecified chronic bronchitis; K21.9 Gastro-esophageal reflux disease without esophagitis; R32 Unspecified urinary incontinence; Z68.28 Body mass index [BMI] 28.0-28.9, adult; M19.90 Unspecified osteoarthritis, unspecified site
CPT/HCPCS: 36415; 51702; 70450; 71045; 71250; 78582; 80048; 80053; 81001; 82306; 82607; 83605; 83735; 83880; 84484; 85025; 85379; 87040; 87070; 87086; 87186; 87205; 87493; 90471; 90686; 93005; 94640; 96361; 96365; 96367; 96374; A9540; A9558; J1160; J1650; J1956; J2185; J2405; J3475; J3480; J7050; J7620; 97116; 99291-25; J7030

== ENCOUNTER → 2019-07-28 | Outpatient (CLI) | payer MEDICARE, OTHER ==
[2018-12-20 03:24] VITALS: BP 105/70
[~2019-07-28] MED LIST changes: +CARV6.25 PO; +CHLO25TA9 PO; +CRAN250C PO; +FAMO10TA69 PO; +POTA10TA12 PO; -POTA10TA31 PO
== END | disposition home or self-care (01) ==
LOC: LAB 10:18
PROVIDERS: ATTEND Registered Nurse
DX: Z03.818 Encounter for observation for suspected exposure to other biological agents ruled out (principal)
CPT/HCPCS: 87635

== ENCOUNTER → 2019-08-01 | Day surgery (SDC) | payer MEDICARE, OTHER ==
[~2019-08-01] MED LIST changes: +BALANCED SALT IRRIG OPHTH SOLN 15 ML BOTTLE. IRR ONE; +CATARACT OPHTH GEL 0.5 ML SYRINGE. OD ONE; +CHONDROIT-SOD-HYALURONATE KIT. OD ONE; +EPINEPHrine AMPULE 0.5 MG in BALANCED SALT IRRIG SOLN PLUS 500 ML IO ONE; +ERYTHROMYCIN 0.5% OPHTH OINTMENT 1GM TUBE. OD ONE; +HYALURONIDASE 75UNITS in LIDOCAINE 2% PF OPHTH 10 ML SYRINGE. OD ONE; +IV RINGERS SOLUTION,LACTATED 1,000 ML IV SCH; +KETOROLAC TROMETHAMINE 0.5% OPHTH SOLUTION BOTTLE. OD SCH; +MOXIFLOXACIN 0.5% OPHTH SOLUTION 3ML BOTTLE. OD SCH; +ONDANSETRON PF 4 MG/2 ML VIAL. IV PRN; +POVIDONE-IODINE 5% OPHTH SOLUTION 30ML BOTTLE. OD ONE; +PROPOFOL 10,000 MCG/ML (20ML) VIAL IV ONE; +TETRACAINE 0.5% OPHTH SOLUTION 4ML BOTTLE. OD ONE; +TETRACAINE 0.5% OPHTH SOLUTION 4ML BOTTLE. OU ONE; +prednisoLONE ACETATE 1% OPHTH SUSPENSION 5ML BOTTLE. OD SCH
[2019-08-01] MEDS: MOXIFLOXACIN 0.5% OPHTH SOLUTION 3ML BOTTLE. OD SCH ×3 (11:06→11:10)
--- NOTE | 2019-08-01 12:05 | PDOC4 ---
Phaco IOL/IFIS w/o Ring/OD Date of Procedure: August 01, 2019 Preoperative Diagnosis: 1. Senile Cataract, Right Eye 2. Anticipated Intraoperative Floppy Iris Syndrome Postoperative Diagnosis: 1. Senile Cataract, Right Eye 2. Intraoperative Floppy Iris Syndrome Anesthesia: Local (Block) with monitored anesthesia care Surgeon: Kelly Gordon D.O. Procedure: Procdeure: Right Phacoemulsification with intraocular lens implant Findings: Senile Cataract Intraoperative Floppy Iris Syndrome Indications: Worsening vision interfering with patient's lifestyle Narrative: After discussing the risks, complications and alternatives, including but not limited to loss of vision, infection, bleeding, swelling, anesthetic reaction, capsule rupture with vitreous loss, etc., the patient was given a peribulbar block under mild IV sedation and cardiac monitoring. Pressure was applied to the eye for approximately 10 minutes. The patient was transferred to the main operating room and was prepped and draped in the usual sterile fashion and positioned under the microscope. A lid speculum was placed. A temporal clear corneal incision was made with a keratome and epi-Shugarcaine was injected into the anterior chamber, this was followed by injecting viscoelastic. A side port incision was made. A continuous tear capsulorrhexis was performed, then hydrodissection was accomplished with balanced salt solution. The phacoemulsification needle was placed in the eye and the nucleus was emulsified. The remaining cortical material was removed with the irrigation and aspiration apparatus. The capsule was polished as needed. The posterior capsule was noted to be clean and intact. Viscoelastic was injected into the eye inflating the capsular bag. An intraocular lens was injected into the eye, unfolding as dara ired and was positioned in the capsular bag. The viscoelastic was aspirated from the eye. The wound edges were hydrated with balanced salt solution and there were no leaks. Viscoelastic was injected over the limbal incisions. Antibiotic and steroid were placed on the eye. The lid speculum was removed, the eye patched shut and a Choi shield applied. There were no compilations and the patient was taken to the PACU in good condition. KELLY GORDON DO August 01, 2019 12:05
[2019-08-01 12:23] VITALS: BP 136/63
== END | disposition home or self-care (01) ==
LOC: SURG 09:05
PROVIDERS: ATTEND Ophthalmology
DX: H25.11 Age-related nuclear cataract, right eye (principal); H21.81 Floppy iris syndrome; E78.00 Pure hypercholesterolemia, unspecified; Z88.1 Allergy status to other antibiotic agents; Z98.890 Other specified postprocedural states; Z91.041 Radiographic dye allergy status; Z79.899 Other long term (current) drug therapy; Z79.82 Long term (current) use of aspirin; Z88.0 Allergy status to penicillin; Z91.018 Allergy to other foods
CPT/HCPCS: 66984; J0171; J2704; V2632

== ENCOUNTER → 2019-08-11 | Outpatient (CLI) | payer MEDICARE, OTHER ==
[2019-08-01 12:23] VITALS: BP 136/63
[~2019-08-11] MED LIST changes: -BALANCED SALT IRRIG OPHTH SOLN 15 ML BOTTLE. IRR ONE; -CATARACT OPHTH GEL 0.5 ML SYRINGE. OD ONE; -CHONDROIT-SOD-HYALURONATE KIT. OD ONE; -EPINEPHrine AMPULE 0.5 MG in BALANCED SALT IRRIG SOLN PLUS 500 ML IO ONE; -ERYTHROMYCIN 0.5% OPHTH OINTMENT 1GM TUBE. OD ONE; -HYALURONIDASE 75UNITS in LIDOCAINE 2% PF OPHTH 10 ML SYRINGE. OD ONE; -IV RINGERS SOLUTION,LACTATED 1,000 ML IV SCH; -KETOROLAC TROMETHAMINE 0.5% OPHTH SOLUTION BOTTLE. OD SCH; -MOXIFLOXACIN 0.5% OPHTH SOLUTION 3ML BOTTLE. OD SCH; +MULT-445 PO; -MULT1TAB52 PO; -ONDANSETRON PF 4 MG/2 ML VIAL. IV PRN; -POVIDONE-IODINE 5% OPHTH SOLUTION 30ML BOTTLE. OD ONE; -PROPOFOL 10,000 MCG/ML (20ML) VIAL IV ONE; -TETRACAINE 0.5% OPHTH SOLUTION 4ML BOTTLE. OD ONE; -TETRACAINE 0.5% OPHTH SOLUTION 4ML BOTTLE. OU ONE; -prednisoLONE ACETATE 1% OPHTH SUSPENSION 5ML BOTTLE. OD SCH
== END | disposition home or self-care (01) ==
LOC: LAB 10:20
PROVIDERS: ATTEND Registered Nurse
DX: Z11.59 Encounter for screening for other viral diseases (principal)
CPT/HCPCS: C9803; U0003

== ENCOUNTER → 2019-08-15 | Day surgery (SDC) | payer MEDICARE, OTHER ==
[~2019-08-15] MED LIST changes: +BALANCED SALT IRRIG IO ONE; +BALANCED SALT IRRIG OPHTH SOLN 15 ML BOTTLE. IRR ONE; +CATARACT OPHTH GEL 0.5 ML SYRINGE. OS ONE; +CHONDROIT-SOD-HYALURONATE KIT. OS ONE; +EPINEPHrine AMPULE 0.5 MG in BALANCED SALT IRRIG SOLN PLUS 500 ML IO ONE; +ERYTHROMYCIN 0.5% OPHTH OINTMENT 1GM TUBE. OS ONE; +HYALURONIDASE 75UNITS in LIDOCAINE 2% PF OPHTH 10 ML SYRINGE. OS ONE; +IV RINGERS SOLUTION,LACTATED 1,000 ML IV SCH; +KETOROLAC TROMETHAMINE 0.5% OPHTH SOLUTION BOTTLE. OS SCH; +MOXIFLOXACIN 0.5% OPHTH SOLUTION 3ML BOTTLE. OS SCH; +ONDANSETRON PF 4 MG/2 ML VIAL. IV PRN; +POVIDONE-IODINE 5% OPHTH SOLUTION 30ML BOTTLE. ONE; +PROPOFOL 10,000 MCG/ML (20ML) VIAL IV ONE; +TETRACAINE 0.5% OPHTH SOLUTION 4ML BOTTLE. OS ONE; +TETRACAINE 0.5% OPHTH SOLUTION 4ML BOTTLE. OU ONE; +prednisoLONE ACETATE 1% OPHTH SUSPENSION 5ML BOTTLE. OS SCH
[2019-08-15] MEDS: MOXIFLOXACIN 0.5% OPHTH SOLUTION 3ML BOTTLE. OS SCH ×3 (10:01→10:11)
--- NOTE | 2019-08-15 10:59 | PDOC4 ---
Phaco IOL/Cataract/OS Date of Procedure: Aug 15, 2019 Preoperative Diagnosis: Senile Cataract, Left Eye Postoperative Diagnosis: Senile Cataract, Left Eye Anesthesia: Local (Block) with monitored anesthesia care Surgeon: Kelly Gordon D.O. Procedure: Left Phacoemulsification with Intraocular Lens Implant Findings: Senile Cataract Indications: Worsening vision interfering with patient's lifestyle Narrative: After discussing the risks, complications and alternatives, including but not limited to loss of vision, infection, bleeding, swelling, anesthetic reaction, capsule rupture with vitreous loss, etc., the patient was given a peribulbar block under mild IV sedation and cardiac monitoring. Pressure was applied to the eye for approximately 10 minutes. The patient was transferred to the main operating room and was prepped and draped in the usual sterile fashion and positioned under the microscope. A lid speculum was placed. A temporal clear corneal incision was made with a keratome and viscoelastic was injected into the eye. A side port incision was made. A continuous tear capsulorrhexis was performed, then hydrodissection was accomplished with balanced salt solution. The phacoemulsification needle was placed in the eye and the nucleus was emulsified. The remaining cortical material was removed with the irrigation and aspiration apparatus. The capsule was polished as needed. The posterior capsule was noted to be clean and intact. Viscoelastic was injected into the eye inflating the capsular bag. An intraocular lens was injected into the eye, unfolding as desired and was positioned in the capsular bag. The viscoelastic was aspirated from the eye. The wound edges were hydrated with balanced salt solution and there were no leaks. Viscoelastic was injected over the limbal incisions. Antibiotic and steroid were placed on the eye. The lid speculum was removed, the eye patched shut and a Choi shield applied. There were no complications and the patient was taken to the PACU in good condition. KELLY GORDON DO Aug 15, 2019 10:59
[2019-08-15 11:26] VITALS: BP 148/69
== END ==
LOC: SURG 09:05
PROVIDERS: ATTEND Ophthalmology
DX: H25.12 Age-related nuclear cataract, left eye (principal); E78.00 Pure hypercholesterolemia, unspecified; I10 Essential (primary) hypertension; K21.9 Gastro-esophageal reflux disease without esophagitis; K50.90 Crohn's disease, unspecified, without complications; F32.9 Major depressive disorder, single episode, unspecified; Z90.49 Acquired absence of other specified parts of digestive tract; Z87.440 Personal history of urinary (tract) infections; Z87.891 Personal history of nicotine dependence; Z90.710 Acquired absence of both cervix and uterus
CPT/HCPCS: 66984; J0171; J2704; V2632